=== PATIENT | male | born 1935 | race Caucasian/White ===

== ENCOUNTER 2020-02-01 17:17 | Emergency (ER) | payer OTHER ==
[2020-02-01 17:33] VITALS: TEMP 98.2; BMI 28.0
--- NOTE | 2020-02-01 19:16 | PDOC ---
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 sn[facility] records state the patient was sitting on the toilet attempting to have a bowel movement when he fell forward striking his head on the floor. Staff that witnessed the fall report patient did not lose consciousness and he has not vomited since the time of injury. Patient was brought to an urgent care center and upon brief evaluation No recent travel or sick contacts. PAST MEDICAL HISTORY: Denies past medical history SURGICAL HISTORY: Denies ALLERGIES: No known drug allergies REVIEW OF SYSTEMS Unable due to clinical condition. PHYSICAL EXAM General Appearance: Wheelchair-bound. Avoids eye contact. HEENT: EOMI, PERRLA, normal ENT inspection, normal voice, TMs normal, pharynx normal. No conjunctival pallor. No photophobia, scleral icterus. Abrasion to the forehead approximately 4 cm in diameter. Neck: Supple. Trachea midline. No tenderness, rigidity, carotid bruit, stridor, lymphadenopathy, or thyromegaly. Respiratory/Chest: Lungs CTAB. No shortness of breath, chest tenderness, respiratory distress, accessory muscle use. No crackles, rales, rhonchi, stridor, wheezing, dullness Cardiovascular: RRR. S1, S2. No JVD, murmur, bradycardia, tachycardia. Integumentary: 4 cm circular abrasion present to the forehead Past History - Medical History Allergies/Adverse Reactions: Allergies Allergy/AdvReac Type Severity Reaction Status Date / Time No Known Allergies Allergy Unverified 02/01/20 17:28 Home Medications: Ambulatory Orders Bicalutamide 50 mg PO DAILY 06/29/15 Dorzolamide HCl/Timolol Maleat [Dorzolamide-Timolol Eye Drops] 1 drop OS BID 06/29/15 Leuprolide Acetate [Lupron Depot] 22.5 mg IM DAILY 06/29/15 Omeprazole [Prilosec (RX)] 20 mg PO DAILY 06/29/15 Phenobarbital 3 tab PO HS 06/29/15 Phenobarbital 32.4 mg PO DAILY 06/29/15 Sennosides [Senna] 2 tab PO HS 06/29/15 Sucralfate 1 gm PO BID 06/29/15 COPD: No GI Disorders: Yes (GERD, CONSTIPATION) Disorders: Yes (BPH) Psychiatric Problems: Yes (SEVERE MR, DEAF, MUTE) Seizures: Yes - Immunization History Td Vaccination: Yes TDAP Vaccination: Yes - Psycho-Social/Smoking History Smoking Status: No Smoking History: Never smoked Have you smoked in the past 12 months: No Number of Cigarettes Smoked Daily: 0 - Substance Abuse Hx (Audit-C & DAST Scrn) How often the patient has a drink containing alcohol: Never Score: In Men: 4 or > Positive; In Women: 3 or > Positive: 0 Screen Result (Pos requires Nsg. Audit-10AR): Negative In the last yr the pt used illegal drug/Rx for NonMed reason: No Score: Yes response is considered Positive: 0 Screen Result (Positive result requires Nsg. DAST-10): Negative *Physical Exam - Vital Signs Last Vital Signs Temp Pulse Resp BP Pulse Ox 98.2 F 61 18 125/58 L 99 02/01/20 17:30 02/01/20 17:30 02/01/20 17:30 02/01/20 17:30 02/01/20 17:30 ED Treatment Course - RADIOLOGY Radiology Studies Ordered: Category Date Time Status CERVICAL SPINE CT W/O CONTR [CT] Stat CT Scan 02/01/20 17:[address] WITHOUT CONTRAST [CT] Stat CT Scan 02/01/20 17:45 Taken Medical Decision Making - Medical Decision Making 02/01/20 19:14 A/P: 84-year-old male for evaluation of head trauma Physical exam is notable for abrasion to middle of forehead approximately [address] of the head and C-spine Reassess 02/01/20 23:08 CT scan is read by imaging on-call: Osteoporotic lucent zone within the C2 vertebral body which goes through the anterior cortex. Ligamentous thickening between the clivus posterior wall extending down to the C2-3 level. This ligamentous thickening is producing a focal central spinal canal stenosis with possible compression of the spinal cord between these anterior ligamentous thickening at the posterior arch of C1. MRI imaging would help in further evaluating these findings if clinically indicated. At the C4-5 level there is moderately prominent posterior disc osteophyte complex producing moderate central spinal canal stenosis without clear evidence of spinal cord compression. Prominent anterior endplate osteophytes from the C3-4 down to the T1-2 levels. No evidence of cervical spinal fracture. CT of the head as read by imaging on-call: Dislocated ventricles are moderately prominent suggesting age-related involutional changes. There is no intracranial hemorrhages, extra-axial fluid collection or evidence of an intra-axial mass lesion. 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 There are a few small scattered deep white matter lucencies suggesting mild chronic microvascular ischemic changes in the frontal and parietal lobes bilaterally. Cerebral de la garza/white matter differentiation is preserved without clear evidence of acute ischemic lesion at this time. Orbital infectious structures cerebro-cerebellopontine angles and posterior fossa appear unremarkable. The paranasal and mastoid sinuses are clear. Discharge back to care facility Portions of this note have been documented using voice recognition software. As a result, errors may occur in the promotional marketing agent process. Effort has been made to correct all grammatical and promotional marketing agent error, but some may have been missed which may produce sporadic inaccurate promotional marketing agent or nonsensical phrases. Discharge - Discharge Information Problems reviewed: Yes Clinical Impression/Diagnosis: Scalp laceration Qualifiers: Encounter type: initial encounter Qualified Code(s): S01.01XA - Laceration without foreign body of scalp, initial encounter Fall Qualifiers: Encounter type: initial encounter Qualified Code(s): W19.XXXA - Unspecified fall, initial encounter Disposition: [facility] FACILITY - Admission No - Follow up/Referral - Patient Discharge Instructions Patient Printed Discharge Instructions: DI for Closed Head Injury - Post Discharge Activity
[2020-02-01 22:45] VITALS: BP 127/64; PULSE 68
== END 2020-02-01 23:13 ==
LOC: JER 17:17
DX: S01.01XA Laceration without foreign body of scalp, initial encounter (principal); W19.XXXA Unspecified fall, initial encounter
CPT/HCPCS: 70450-TC; 72125-TC; 99284-25